=== PATIENT | female | born 1970 | race Two or more races ===

== ENCOUNTER 2017-01-23 07:30 | Day surgery (SDC) | payer BC ==
[2017-01-23] VITALS (7 sets, daily range): BP systolic 128–146; BP diastolic 65–92
[~2017-01-23] VITALS: Ht 160 cm; Wt 54.4 kg
--- NOTE | 2017-01-23 07:01 | Anethesia Preoperative Eval ---
Anesthesia Pre-op PMH/ROS General Date of Evaluation: Jan 23, 2017 Time of Evaluation: 07:00 Anesthesiologist: spencer ASA Score: ASA 2 Mallampati Score Class I : Soft palate, uvula, fauces, pillars visible Class II: Soft palate, uvula, fauces visible Class III: Soft palate, base of uvula visible Class IV: Only hard plate visible Mallampati Classification: Class II Surgeon: erick Diagnosis: gerd, rectal bleeding Surgical Procedure: egd/colonoscopy Anesthesia History: none Social History: current smoker Family History: no anesthesia problems Allergies: Coded Allergies: No Known Allergies (Unverified , 01/20/17) Medications: see eMAR Past Medical History Gastrointestinal/Genitourinary: Reports: other - abdominal pain PSxH Narrative: mine knight Anesthesia Pre-op Phys. Exam Physician Exam Last Vital Signs Date Time Temp Pulse Resp B/P (MAP) Pulse Ox O2 Delivery O2 Flow Rate FiO2 01/23/17 07:59 98.2 68 20 135/87 100 Room Air Constitutional: NAD Neurologic: CN 2-12 intact Cardiovascular: RRR Respiratory: CTA Gastrointestinal: S/NT/ND Airway Exam Mallampati Score: Class II MO: full Neck: supple TMD: 2fb ROM: full Teeth: intact Anesthesia Pre-op A/P Labs Labs Test 01/23/17 07:45 Urine HCG, Qualitative Negative Risk Assessment & Plan Assessment: asa2 Plan: mac Status Change Before Surgery: No Pre-Antibiotics Drug: ARMAAN Blankenship Jan 23, 2017 07:01
[2017-01-23] MEDS ORDERED: NKM (08:05)
[2017-01-23] MEDS ORDERED: DiphenhydrAMINE 50mg/ml Inj IVP PRN (08:30)
[2017-01-23] MEDS ORDERED: Atropine Inj 1mg/10ml Syr IV PRN (08:30)
[2017-01-23] MEDS ORDERED: Midazolam 2mg/2ml Inj IVP PRN (08:30)
[2017-01-23] MEDS ORDERED: fentaNYL 100 mcg/2 mL IV PRN (08:30)
[2017-01-23] MEDS ORDERED: Lidocaine 1% MPF 10mg/ml 5ml ONE (08:45)
[2017-01-23] MEDS ORDERED: Propofol 200mg/20ml IV ONE (08:45)
--- NOTE | 2017-01-23 09:19 | Pre-Procedure Note/Attestation ---
Pre-Procedure Note/Attestation Complete Prior to Procedure Planned Procedure: not applicable Procedure Narrative: esophagogastroduodenoscopy and colonoscopy Indications for Procedure Pre-Operative Diagnosis: rectal bleed GERD Attestation I attest that I discussed the nature of the procedure; its benefits; risks and complications; and alternatives (and the risks and benefits of such alternatives ), prior to the procedure, with the patient (or the patient's legal counter sales representative). I attest that, if there was a reasonable possibility of needing a blood transfusion, the patient (or the patient's legal counter sales representative) was given the [facility] standardized written summary, pursuant to the Mark Brooke Blood Safety Act ([place] Health and Safety Code # 1645, as amended). I attest that I re-evaluated the patient just prior to the surgery and that there has been no change in the patient's H&P, except as documented below: FARHANA KRAMER Jan 23, 2017 09:19
--- NOTE | 2017-01-23 09:20 | Short Stay Surgery H&P ---
History of Present Illness History of Present Illness Chief Complaint rectal bleed consipation GED HPI Zully Pryor is a 46 year old female who was admitted on for Gerd,Rectal Bleeding Patient History Allergies: Coded Allergies: No Known Allergies (Unverified , 01/20/17) PAST MEDICAL HISTORY: Past Surgeries: Social History: Medication History Scheduled No Known Medications* (NKM - No Known Medications*), 0 ., (Reported) Review of Systems Cardiovascular: Reports: no symptoms Respiratory: Reports: no symptoms Gastrointestinal: Reports: gastro esophageal reflux disease Genitourinary: Reports: no symptoms Neurologic: Reports: no symptoms Endocrine: Reports: no symptoms Hematologic: Reports: no symptoms Physical Exam Vital Signs Last Vital Signs Date Time Temp Pulse Resp B/P (MAP) Pulse Ox O2 Delivery O2 Flow Rate FiO2 01/23/17 07:59 98.2 68 20 135/87 100 Room Air Labs Laboratory Tests Test 01/23/17 07:45 Urine HCG, Qualitative Negative Skin: normal HENT: normal Heart: normal Lungs: normal Abdomen: normal Extremities: normal Plan Plan of Care esophagogastroduodenoscopy and colonoscopy Final Diagnosis: Attestation Are the patient's medical conditions optimized for surgery? Attestation Response: yes FARHANA KRAMER Jan 23, 2017 09:20
--- NOTE | 2017-01-23 09:44 | Endoscopy Procedure Note ---
Endoscopy Procedure Note Indication for Procedure: constipation, gerd Procedures Performed: EGD, colonoscopy Operative Findings/Diagnosis: gastric polyp, gastritis, 2 colon polyps Specimen: yes Pt Tolerated Procedure Well: Yes Estimated Blood Loss: none Anesthesiologist: Hafsa Anesthesia: MAC Implant(s) used?: No 50 yrs or older w/o bx or poly: No 10yrs. F/U not recommended: Yes If not recommended, why?: Above average risk 10 yrs. F/U needed: Yes 18 years or older w/prev. colo: No FARHANA KRAMER Jan 23, 2017 09:44
--- NOTE | 2017-01-23 10:34 | Immediate Post-Op Evaluation ---
Immediate Post-Op Evalulation Immediate Post-Op Evalulation Procedure: egd/colonoscopy Date of Evaluation: Jan 23, 2017 Time of Evaluation: 10:02 IV Fluids: 400ml 0.9ns Blood Products: none Estimated Blood Loss: negligible Blood Pressure Systolic: 139 Blood Pressure Diastolic: 92 Pulse Rate: 56 Respiratory Rate: 18 O2 Sat by Pulse Oximetry: 99 Temperature (Fahrenheit): 98.2 Pain Score (1-10): 0 Nausea: No Vomiting: No Complications none Patient Status: awake, reacts, patent Hydration Status: adequate Drug: ARMAAN Blankenship Jan 23, 2017 10:34
--- NOTE | 2017-01-23 10:36 | 48 Hour Post Anesthesia Eval ---
Post Anesthesia Evaluation Procedure: egd/colonoscopy Date of Evaluation: Jan 23, 2017 Time of Evaluation: 10:34 Blood Pressure Systolic: 142 0: 65 Pulse Rate: 68 Respiratory Rate: 18 Temperature (Fahrenheit): 98.2 O2 Sat by Pulse Oximetry: 99 Airway: patent Nausea: No Vomiting: No Pain Intensity: 0 Hydration Status: adequate Cardiopulmonary Status: stable Mental Status/LOC: patient returned to baseline Post-Anesthesia Complications: none Follow-up care needed: N/A ARMANA MARMOLEJO Jan 23, 2017 10:36
--- NOTE | 2017-01-23 19:00 | Procedure Note ---
DATE OF PROCEDURE: 01/23/2017 SURGEON: Robbi Livingston M.D. PROCEDURE: Upper endoscope with biopsy and colonoscopy with biopsy. ANESTHESIA: Per Dr. Og. INSTRUMENT: Olympus adult flexible upper endoscope and colonoscope. INDICATIONS: Rectal bleeding, abdominal pain, and chronic acid reflux disease. The procedure, risks, benefits, and possible consequences, including hemorrhage, aspiration, perforation and infection, and alternative treatments, were explained to the patient/legal guardian by Dr. Robbi Livingston and the patient/legal guardian understood and accepted these risks. DESCRIPTION OF PROCEDURE: After informed consent was obtained and the patient was adequately sedated, Olympus upper endoscope was advanced from the mouth into the second portion of the duodenum and retroflexion was performed in the stomach. The patient had evidence of diffuse gastritis. Random biopsy from antrum and body was obtained to rule out H. pylori infection. There were multiple fundic gland looking polyps in the stomach. One of them was just biopsied for diagnosis. At this time, the scope was gradually retrieved. The patient had evidence of 2 small inlet patches below the upper esophagus sphincter. At this time, the upper endoscope was fully removed and the patient was turned over for colonoscopy. First, a rectal exam was performed, which was positive for internal hemorrhoids. Then, the scope was advanced from the rectum into the cecum and then subsequently into the terminal ileum. Quality of prep was very good. The patient had normal terminal ileal mucosa. In the colon, there were 2 polyps in the descending colon, diminutive polyps, both removed with the cold biopsy forceps technique. The rest of the colonic examination was grossly within normal limits. Retroflexion of rectum showed evidence of few medium-sized internal hemorrhoids. SUMMARY OF FINDINGS: 1. Inlet patch. 2. Gastritis, status post biopsy. 3. Multiple fundic gland looking polyps, status post biopsy. 4. Internal hemorrhoids. 5. Two colonic polyps removed. See above for details. RECOMMENDATIONS: Follow up biopsies and treat accordingly. Robbi Livingston M.D. DR: SCOT JOB#: [id number] CC:
== END 2017-01-23 10:55 | disposition home or self-care (01) ==
LOC: GAS 07:30
DX: K62.5 Hemorrhage of anus and rectum (principal); K21.9 Gastro-esophageal reflux disease without esophagitis; R10.9 Unspecified abdominal pain; K64.8 Other hemorrhoids; K29.50 Unspecified chronic gastritis without bleeding; K31.7 Polyp of stomach and duodenum; D12.4 Benign neoplasm of descending colon; K22.8 Other specified diseases of esophagus; K59.00 Constipation, unspecified; F17.200 Nicotine dependence, unspecified, uncomplicated
CPT/HCPCS: 43239; 45380; 81025; J2704; 94003; 94150